=== PATIENT | male | born 1975 | race Caucasian/White ===

== ENCOUNTER 2018-03-08 05:13 | Emergency (ER) | payer OTHER ==
[2018-03-08] MEDS ORDERED: ONDANSETRON 4 MG/2 ML VIAL ONE (06:25)
[2018-03-08] MEDS ORDERED: NA CHLORIDE 0.9% 1,000 ML ONE ×2 (06:25→08:21)
[2018-03-08] MEDS ORDERED: MORPHINE 4 MG/ML SYR ONE ×2 (06:25→07:58)
[2018-03-08] MEDS ORDERED: PANTOPRAZOLE 40 MG INJ ONE (06:33)
[2018-03-08 06:43] LABS: Absolute Lymphocytes (CBC) 2.4 K/uL (0.7-4.9); Absolute Monocytes 0.9 K/uL (0.1-1.3); Absolute Neutrophil 6.8 K/uL (1.8-8.0); Basophils % 0.9 % (0-1.3); Eosinophils % 3.7 % (0-4.4); Hematocrit 52.6 % (39.6-49.0); Lymphocytes % 22.6 % (15.3-44.8); MCH 29.5 pg (27.0-35.0); MPV 8.4 fL (7.6-11.3); Monocytes % 8.6 % (3.3-12.3); RBC Red Blood Cell Count 6.05 M/uL (4.33-5.43)
[2018-03-08 07:04] LABS: Glucose Level 140 mg/dL (65-120); Lipase 38 U/L (22-51)
[2018-03-08 07:10] LABS: Albumin 4.8 g/dL (3.2-5.5); Alkaline Phosphatase 87 IU/L (42-121); Bilirubin Direct 0.2 mg/dL (0-0.2); Bilirubin Total 0.7 mg/dL (0.3-1.2); Protein, Total 7.8 g/dL (6.0-8.3)
[2018-03-08 07:29] LABS: BUN Blood Urea Nitrogen 9 mg/dL (6-20)
[2018-03-08 07:30] LABS: ALT/SGPT 40 IU/L (10-60); AST/SGOT 29 IU/L (10-42); Amylase Level 54 U/L (28-100); Bicarbonate 22 mEq/L (21-31); Potassium 4.3 mEq/L (3.6-5.0); Sodium Level 138 mEq/L (135-145)
--- NOTE | 2018-03-08 07:35 | EKG ---
Test Date: 2018-03-08 Test Time: 06:40:24 [employer]: MEASUREMENT RESULTS: Intervals: Rate: 67 KS: 150 QRSD: 110 QT: 394 QTc: 416 [place]: P: 10 KS: 150 QRS: -22 T: 0 INTERPRETIVE STATEMENTS: Normal sinus rhythm with sinus arrhythmia Normal ECG No previous ECG available for comparison Electronically Signed On 03-08-18 07:34:47 CDT by Edison Vicente
[2018-03-08] MEDS ORDERED: MAGNE/ALUM HYDROXD 30 ML UCUP ONE (08:20)
[2018-03-08] MEDS ORDERED: DICYCLOMINE HCL 10 MG CAP ONE (08:21)
[2018-03-08] MEDS ORDERED: LIDOCAINE VISCOUS 2% SOLN 15 ML UDC ONE (08:21)
--- NOTE | 2018-03-08 08:46 | RAD REPORT ---
EXAM DESCRIPTION: US - Abdomen Exam Limited - 03/08/2018 6:56 am CLINICAL HISTORY: Abdominal pain. COMPARISON: 2017 FINDINGS: An 18 millimeters stone is present within the gallbladder neck. The gallbladder wall is up per limits normal thickness. A moderate amount of sludge is present within the gallbladder. . The biliary tree is normal caliber. IMPRESSION: Cholelithiasis without evidence cholecystitis. Moderate amount of gallbladder sludge is seen
[2018-03-08 09:05] LABS: Urine Bacteria <20 /HPF (NONE SEEN); Urine Culture Reflex Order REFLEXED; Urine Mucus LIGHT /HPF (NONE SEEN); Urine RBC NONE SEEN /HPF (NONE SEEN)
--- NOTE | 2018-03-08 09:30 | EDPHYS ---
Physician Documentation [facility] Name: Carloz Alvarez Age: 42 yrs Sex: Male : 1975 Arrival Date: 03/08/2018 Time: 05:17 Bed 7 Private MD: ED Physician Enrique Krishnamurthy HPI: 03/08 06:24 This 42 yrs old Male presents to ER via Ambulatory with complaints of cp Abdominal Pain. 06:24 The patient presents with abdominal pain in the upper abdomen. Onset: The cp symptoms/episode began/occurred yesterday. Associated signs and symptoms: Pertinent positives: nausea and vomiting. 06:24 The patient has experienced a previous episode, last year. cp 06:24 Severity of pain: in the emergency department the pain is unchanged despite home cp interventions. Patient reports history of gallstones and had similar attack several months ago. Patient reports he did not f/u with GI or general surgery because he was unsure if he wanted his gallbladder removed. Pain started last night with nausea and vomiting. Historical: - Allergies: 06:04 No Known Allergies; mg2 - Home Meds: 06:04 Pepcid 20 mg Oral tab once daily [Active]; mg2 - PMHx: 06:04 GERD; Kidney stones; ADD/ADHD; Hypertension; mg2 - Immunization history:: Flu vaccine is not up to date. - Social history:: Smoking status: Patient uses tobacco products, smokes one-half pack cigarettes per day, Patient uses alcohol, 4-5 bottles a day. - Ebola Screening: : No symptoms or risks identified at this time. ROS: 06:28 Constitutional: Negative for body aches, chills, fever. cp 06:28 Eyes: Negative for injury, pain, redness, and discharge. cp Exam: 06:33 Constitutional: The patient appears in no acute distress, alert, awake, cp non-diaphoretic, non-toxic, well developed, well nourished, uncomfortable. 06:33 Head/Face: Normocephalic, atraumatic. cp 06:33 Eyes: Periorbital structures: appear normal, Pupils: equal, round, and reactive to light and accomodation, Extraocular movements: intact throughout, Conjunctiva: normal, no exudate, no injection, Sclera: icterus, is not appreciated, Lids and lashes: appear normal, bilaterally. 06:33 ENT: External ear(s): are unremarkable, Nose: is normal, Mouth: is normal, no lip abnormalities, no mucosal abnormalities, Posterior pharynx: is normal, airway is patent, no erythema, no exudate, Voice: is normal. 06:33 Neck: ROM/movement: is normal, is supple, without pain, no range of motions limitations, no nuchal rigidity. 06:33 Chest/axilla: Inspection: normal, Palpation: is normal, no crepitus, no tenderness. 06:33 Cardiovascular: Rate: normal, Rhythm: regular, Heart sounds: murmur, not appreciated, Edema: is not appreciated, JVD: is not appreciated. 06:33 Respiratory: the patient does not display signs of respiratory distress, Respirations: normal, no use of accessory muscles, no retractions, no splinting, no tachypnea, labored breathing, is not present, Breath sounds: are clear throughout, no decreased breath sounds, no stridor, no wheezing. 06:33 Abdomen/GI: Inspection: abdomen appears normal, Bowel sounds: active, all quadrants, Palpation: soft, in all quadrants, moderate abdominal tenderness, in the epigastric area and right upper quadrant, rebound tenderness, is not appreciated, voluntary guarding, is elicited in the epigastric area and right upper quadrant. 06:33 Back: pain, is absent, ROM is normal, CVA tenderness, is absent. 06:33 Skin: cellulitis, is not appreciated, no rash present. 06:33 Neuro: Orientation: to person, place \T\ time. Mentation: lucid, able to follow commands, Cerebellar function: is grossly normal, Motor: moves all fours, strength is normal, Sensation: no obvious gross deficits, Gait: is steady. Vital Signs: 06:05 BP 189 / 106; Pulse 78; Resp 18; Temp 97.8(O); Pulse Ox 100% ; Weight 124.74 kg; Height mg2 6 ft. 0 in. (182.88 cm); Pain 10/10; 06:44 BP 159 / 96; Pulse 72; Resp 18; Pulse Ox 97% on R/A; Pain 8/10; mg2 07:33 BP 131 / 55; Pulse 79; Resp 16; Pulse Ox 100% on R/A; hb 08:30 BP 135 / 82; Pulse 77; Resp 17; Pulse Ox 100% on R/A; Pain 8/10; hb 09:30 BP 132 / 80; Pulse 74; Resp 15; Pulse Ox 100% on R/A; Pain 5/10; hb 06:05 Body Mass Index 37.30 (124.74 kg, 182.88 cm) mg2 MDM: 06:15 Patient medically screened. cp 07:00 Differential diagnosis: cholecystitis, Cholelithiasis, gastritis, GI Bleed, cp pancreatitis, Peptic Ulcer Disease, Perf. Duodenal Ulcer, Perf. Gastric Ulcer. 09:27 Data reviewed: vital signs, nurses notes, lab test result(s), EKG, radiologic studies, cp ultrasound. 09:27 Counseling: I had a detailed discussion with the patient and/or guardian regarding: the cp historical points, exam findings, and any diagnostic results supporting the discharge/admit diagnosis, lab results, radiology results, the need for outpatient follow up, a general surgeon, to return to the emergency department if symptoms worsen or persist or if there are any questions or concerns that arise at home. 09:28 Response to treatment: the patient's symptoms have markedly improved after treatment, cp and as a result, I will discharge patient. 09:28 Special discussion: Based on the patient's Hx, exam, and Dx evaluation, there is no cp indication for emergent surgery or inpatient Tx. It is understood by the patient/guardian that if the Sx's persist or worsen they need to return immediately for re-evaluation. ED course: VSS. Pain markedly improved and vomiting resolved. Will discharge to home for continued monitoring. 03/08 06:14 Order name: Amylase, Serum; Complete Time: 07:55 mg2 03/08 06:14 Order name: Basic Metabolic Panel; Complete Time: 07:55 mg2 03/08 07:55 Interpretation: Normal except: GLUC 140. cp 03/08 06:14 Order name: CBC with Diff; Complete Time: 07:55 mg2 03/08 07:55 Interpretation: Normal except: RBC 6.05; HCT 52.6. cp 03/08 06:14 Order name: Creatinine for Radiology; Complete Time: 07:55 mg2 03/08 06:14 Order name: Hepatic Function; Complete Time: 07:55 mg2 03/08 06:14 Order name: Lipase; Complete Time: 07:55 mg2 03/08 06:14 Order name: Urine Microscopic Only mg2 03/08 06:22 Order name: Troponin I cp 03/08 06:22 Order name: Magnesium cp 03/08 06:23 Order name: Troponin I; Complete Time: 07:55 EDMS 03/08 07:55 Interpretation: Reviewed. cp 03/08 06:38 Order name: Magnesium; Complete Time: 07:55 EDMS 03/08 08:23 Order name: Urine Dipstick--Ancillary (enter results) dm5 03/08 09:07 Order name: Urine Culture EDMS 03/08 06:14 Order name: IV Saline Lock; Complete Time: 06:15 mg2 03/08 06:14 Order name: Labs collected and sent; Complete Time: 06:15 mg2 03/08 06:14 Order name: Urine Dipstick-Ancillary (obtain specimen); Complete Time: 08:15 mg2 03/08 06:22 Order name: EKG; Complete Time: 06:23 cp 03/08 06:22 Order name: EKG - Nurse/Tech; Complete Time: 06:44 cp 03/08 06:23 Order name: US Abdomen Limited: RUQ; Complete Time: 08:47 cp 03/08 08:47 Interpretation: Report reviewed. cp 03/08 06:23 Order name: NPO; Complete Time: 08:14 cp Administered Medications: 06:34 Drug: morphine 4 mg Route: IVP; Site: left antecubital; mg2 07:14 Follow up: Response: No adverse reaction; Pain is unchanged, physician notified mg2 06:34 Drug: Zofran 4 mg Route: IVP; Site: left antecubital; mg2 07:14 Follow up: Response: No adverse reaction; Vomiting decreased mg2 06:34 Drug: ProTONIX 40 mg Route: IVP; Site: left antecubital; mg2 07:13 Follow up: Response: No adverse reaction mg2 06:34 Drug: NS 0.9% 1000 ml Route: IV; Rate: 1 bolus; Site: left antecubital; mg2 07:40 Follow up: IV Status: Completed infusion hb 08:01 Drug: morphine 4 mg Route: IVP; Site: left antecubital; ea 09:00 Follow up: Response: No adverse reaction; Pain is decreased hb 08:31 Drug: Bentyl 20 mg Route: PO; jl7 09:20 Follow up: Response: No adverse reaction; Pain is decreased hb 08:31 Drug: GI Cocktail without - (Maalox Suspension 30 ml, Lidocaine Liquid 2 % 15 jl7 ml) Route: PO; 09:00 Follow up: Response: No adverse reaction; Pain is decreased hb 08:32 Drug: NS 0.9% 1000 ml Route: IV; Rate: 125 ml/hr; Site: left antecubital; jl7 09:46 Follow up: Response: No adverse reaction; IV Status: Completed infusion hb Disposition: 16:17 Co-signature as Attending Physician, Enrique Krishnamurthy MD. rn Disposition: 03/08/18 09:30 Discharged to Home. Impression: Cholelithiasis, Biliary Colic. - Condition is Stable. - Discharge Instructions: Biliary Colic, Cholelithiasis. - Prescriptions for Bentyl 20 mg Oral Tablet - take 2 tablet by ORAL route every 6 hours As needed; 40 tablet. Zofran 4 mg Oral Tablet - take 1 tablet by ORAL route every 12 hours As needed; 20 tablet. Cipro 500 mg Oral Tablet - take 1 tablet by ORAL route every 12 hours for 7 days; 14 tablet. Tramadol 50 mg Oral Tablet - take 1 tablet by ORAL route every 8 hours as needed; 15 tablet. - Medication Reconciliation Form, Thank You Letter, Antibiotic Education, Prescription Opioid Use form. - Follow up: Angel Navarro MD; When: 1 - 2 days; Reason: Recheck today's complaints. - Problem is an acute exacerbation. - Symptoms have improved. Signatures: Dispatcher [employer] EDWI Enrique Krishnamurthy MD MD rn Page, Corey, PA PA cp Suzie Alexandra RN Lisa Mireles RN [place] jl7 Nikki Stokes RN RN ea [place], Michele RN RN mg2 Corrections: (The following items were deleted from the chart) 06:37 06:23 Magnesium ordered. [facility] ED[facility] 09:32 09:30 03/08/2018 09:30 Discharged to Home. Impression: Cholelithiasis; Upper abdominal cp pain, unspecified. Condition is Stable. Forms are Medication Reconciliation Form, Thank You Letter, Antibiotic Education, Prescription Opioid Use. Follow up: Angel Navarro; When: 1 - 2 days; Reason: Recheck today's complaints. Problem is an acute exacerbation. Symptoms have improved. cp 09:49 09:32 03/08/2018 09:30 Discharged to Home. Impression: Cholelithiasis; Biliary Colic. hb Condition is Stable. Discharge Instructions: Biliary Colic, Cholelithiasis. Prescriptions for Bentyl 20 mg Oral Tablet - take 2 tablet by ORAL route every 6 hours As needed; 40 tablet, Zofran 4 mg Oral Tablet - take 1 tablet by ORAL route every 12 hours As needed; 20 tablet, Cipro 500 mg Oral Tablet - take 1 tablet by ORAL route every 12 hours for 7 days; 14 tablet, Tramadol 50 mg Oral Tablet - take 1 tablet by ORAL route every 8 hours as needed; 15 tablet. and Forms are Medication Reconciliation Form, Thank You Letter, Antibiotic Education, Prescription Opioid Use. Follow up: Angel Navarro; When: 1 - 2 days; Reason: Recheck today's complaints. Problem is an acute exacerbation. Symptoms have improved. cp
--- NOTE | 2018-03-08 09:30 | ER ---
Nurse's Notes [facility] Name: Carloz Alvaerz Age: 42 yrs Sex: Male : 1975 Arrival Date: 03/08/2018 Time: 05:17 Bed 7 Private MD: Diagnosis: Cholelithiasis;Biliary Colic Presentation: 03/08 06:00 Presenting complaint: states: he has right upper quadrant pain for 2 days and was mg2 vomiting for almost an hour already. he was here before and was diagnosed with gall bladder stones but no surgical intervention was done and was sent home with pain medications and follow up with GI. Transition of care: patient was not received from another setting of care. Onset of symptoms was March 07, 2018. Risk Assessment: Do you want to hurt yourself or someone else? Patient reports no desire to harm self or others. Initial Sepsis Screen: Does the patient meet any 2 criteria? No. Patient's initial sepsis screen is negative. Does the patient have a suspected source of infection? No. Patient's initial sepsis screen is negative. Care prior to arrival: None. 06:00 Method Of Arrival: Ambulatory mg2 06:00 Acuity: [place] 2 mg2 Historical: - Allergies: 06:04 No Known Allergies; mg2 - Home Meds: 06:04 Pepcid 20 mg Oral tab once daily [Active]; mg2 - PMHx: 06:04 GERD; Kidney stones; ADD/ADHD; Hypertension; mg2 - Immunization history:: Flu vaccine is not up to date. - Social history:: Smoking status: Patient uses tobacco products, smokes one-half pack cigarettes per day, Patient uses alcohol, 4-5 bottles a day. - Ebola Screening: : No symptoms or risks identified at this time. Screenin:06 Abuse screen: Denies threats or abuse. Denies injuries from another. Nutritional mg2 screening: No deficits noted. Tuberculosis screening: No symptoms or risk factors identified. Fall Risk None identified. Assessment: 06:16 General: Appears uncomfortable, Behavior is calm, cooperative, anxious. Pain: Complains mg2 of pain in abdomen Pain does not radiate. Pain currently is 10 out of 10 on a pain scale. Quality of pain is described as aching, Pain began 1 day ago. Is intermittent. Neuro: Level of Consciousness is awake, alert, obeys commands, Oriented to person, place, time, situation. Cardiovascular: Capillary refill < 3 seconds Patient's skin is warm and dry. Respiratory: Airway is patent Respiratory effort is even, unlabored. GI: Abdomen is flat, Reports upper abdominal pain, vomiting. : No signs and/or symptoms were reported regarding the genitourinary system. EENT: No signs and/or symptoms were reported regarding the EENT system. Derm: Skin is intact, Skin is pink, warm \T\ dry. normal. Musculoskeletal: Circulation, motion, and sensation intact. 07:20 Reassessment: Patient appears in no apparent distress at this time. Patient and/or hb family updated on plan of care and expected duration. Pain level reassessed. Patient is alert, oriented x 3, equal unlabored respirations, skin warm/dry/pink. 08:15 Reassessment: Pt c/o RUQ pain 8/10, requesting pain medication. LILY Miranda notified, hb repeat morphine administered. VSS. remains at bedside. 09:00 Reassessment: Patient appears in no apparent distress at this time. Patient and/or hb family updated on plan of care and expected duration. Pain level reassessed. Patient is alert, oriented x 3, equal unlabored respirations, skin warm/dry/pink. Patient states symptoms have improved. Vital Signs: 06:05 BP 189 / 106; Pulse 78; Resp 18; Temp 97.8(O); Pulse Ox 100% ; Weight 124.74 kg; Height mg2 6 ft. 0 in. (182.88 cm); Pain 10/10; 06:44 BP 159 / 96; Pulse 72; Resp 18; Pulse Ox 97% on R/A; Pain 8/10; mg2 07:33 BP 131 / 55; Pulse 79; Resp 16; Pulse Ox 100% on R/A; hb 08:30 BP 135 / 82; Pulse 77; Resp 17; Pulse Ox 100% on R/A; Pain 8/10; hb 09:30 BP 132 / 80; Pulse 74; Resp 15; Pulse Ox 100% on R/A; Pain 5/10; hb 06:05 Body Mass Index 37.30 (124.74 kg, 182.88 cm) mg2 ED Course: 05:17 Patient arrived in ED. es 06:00 Kyaw Wagner, RN is Primary Nurse. mg2 06:03 Triage completed. mg2 06:06 Arm band placed on. mg2 06:13 [facility] cp 06:14 Lex Recinos MD is Attending Physician. cp 06:15 Inserted saline lock: 20 gauge in left antecubital area, using aseptic technique. Blood mg2 collected. 06:54 US Abdomen Limited: RUQ In Process Unspecified. EDMS 06:54 Ultrasound completed. Patient tolerated well. aa4 07:00 Patient has correct armband on for positive identification. Bed in low position. Call hb light in reach. Side rails up X 1. 07:30 Enrique Krishnamurthy MD is Attending Physician. cp 08:14 Urine collected: clean catch specimen, clear. dh3 09:28 Angel Navarro MD is Referral Physician. cp 09:48 No provider procedures requiring assistance completed. IV discontinued, intact, hb bleeding controlled, No redness/swelling at site. Pressure dressing applied. Administered Medications: 06:34 Drug: morphine 4 mg Route: IVP; Site: left antecubital; mg2 07:14 Follow up: Response: No adverse reaction; Pain is unchanged, physician notified mg2 06:34 Drug: Zofran 4 mg Route: IVP; Site: left antecubital; mg2 07:14 Follow up: Response: No adverse reaction; Vomiting decreased mg2 06:34 Drug: ProTONIX 40 mg Route: IVP; Site: left antecubital; mg2 07:13 Follow up: Response: No adverse reaction mg2 06:34 Drug: NS 0.9% 1000 ml Route: IV; Rate: 1 bolus; Site: left antecubital; mg2 07:40 Follow up: IV Status: Completed infusion hb 08:01 Drug: morphine 4 mg Route: IVP; Site: left antecubital; ea 09:00 Follow up: Response: No adverse reaction; Pain is decreased hb 08:31 Drug: Bentyl 20 mg Route: PO; jl7 09:20 Follow up: Response: No adverse reaction; Pain is decreased hb 08:31 Drug: GI Cocktail without - (Maalox Suspension 30 ml, Lidocaine Liquid 2 % 15 jl7 ml) Route: PO; 09:00 Follow up: Response: No adverse reaction; Pain is decreased hb 08:32 Drug: NS 0.9% 1000 ml Route: IV; Rate: 125 ml/hr; Site: left antecubital; jl7 09:46 Follow up: Response: No adverse reaction; IV Status: Completed infusion hb Outcome: 09:30 Discharge ordered by MD. cp 09:48 Discharged to home ambulatory, with significant other. hb 09:48 Condition: stable 09:48 Discharge instructions given to patient, significant other, Instructed on discharge instructions, follow up and referral plans. medication usage, Demonstrated understanding of instructions, follow-up care, medications, Prescriptions given X 4. 09:49 Patient left the ED. hb Signatures: Dispatcher [employer] EDKeshia Rizo Amanda aa4 Ruben Maurice, Suzie Servin cp, RN RN Lisa Macario RN RN jl7 Tanvi Beltran 3 Nikki Stokes RN RN Kyaw Maldonado RN RN mg2 Corrections: (The following items were deleted from the chart) 06:06 06:00 Acuity: [place] 3 mg2 mg2 08:39 08:15 Reassessment: Pt c/o RUQ pain 8/10, requesting pain medication. LILY Miranda notified, repeat morphine administered. VSS. remains at [facility]. hb
[2018-03-08 16:45] LABS: Urine Blood TRACE (NEG); Urine Glucose NEGATIVE (NEG); Urine Protein 1+ (NEG); Urine Specific Gravity 1.015 (1.005-1.030)
== END 2018-03-08 09:49 | disposition home or self-care (01) ==
LOC: ER 05:13
DX: K80.20 Calculus of gallbladder without cholecystitis without obstruction (principal); K80.50 Calculus of bile duct without cholangitis or cholecystitis without obstruction; I10 Essential (primary) hypertension; K21.9 Gastro-esophageal reflux disease without esophagitis; F17.210 Nicotine dependence, cigarettes, uncomplicated
CPT/HCPCS: 36415; 76705; 80048; 80076; 81003; 81015; 82150; 83690; 83735; 84484; 85025; 87086; 87088; 93005; 96361; 96374; 96375; 99284; C9113; J2405; J7030